=== PATIENT | male | born 1965 | race Caucasian/White ===

== ENCOUNTER 2016-02-17 18:45 | Emergency (ER) | payer MEDICAID ==
[2016-02-17 19:28] VITALS: TEMP 97.9; BMI 27.3
[2016-02-17 19:35] LABS: ALL NEG? NO
[2016-02-17 19:39] LABS: AUTOMATED BASOPHIL 1.7 % (0-2); AUTOMATED EOSINOPHIL 4.3 % (0-5); AUTOMATED LYMPH 47.3 % (17-44); AUTOMATED MONOCYTE 10.2 % (3-10); AUTOMATED NEUTROPHIL 36.5 % (45-76); MPV 7.6 fL (7.4-10.4)
[2016-02-17 19:43] LABS: MDMA* NEG (NEGATIVE); METHAMPHETAMINES NEG (NEGATIVE); OXYCODONE NEG (NEGATIVE)
[2016-02-17 19:47] LABS: LEUKOCYTES/URINE NEG (NEGATIVE); NITRITE/URINE NEG (NEGATIVE); URINE OCCULT BLOOD NEG (NEG/TRACE)
[2016-02-17 19:52] LABS: BLOOD UREA NITROGEN 4 MG/DL (9-20); CALC CORRECTED 8.7 MG/DL (8.4-10.2); CALCIUM 8.4 MG/DL (8.4-10.2); CALCULATED OSMOLALITY 280 MOs/Kg (270-290); CHLORIDE 103 mEq/L (98-107); GLUCOSE 110 MG/DL (70-99); SODIUM LEVEL 147 mEq/L (137-146); TOTAL PROTEIN 7.6 G/DL (6.3-8.2)
[2016-02-17 19:59] LABS: ETOH-MGDL 285 mg/dL
--- NOTE | 2016-02-17 21:54 | EDPRACDOC ---
- General Information Chief Complaint: Alcohol Withdrawal Stated Complaint: DETOX - SI THOUGHTS Time Seen by Provider: 02/17/16 21:46 Information Source: Patient Mode Of Arrival: Law Enforcement Home Medications: Home Medications Albuterol Sulfate [Proventil Hfa] 2 puff INH Q6 PRN 07/10/14 Amlodipine [Norvasc] 2.5 mg PO DAILY 07/10/14 Atorvastatin [Lipitor 40 mg Tablet] 40 mg PO HS 07/10/14 Esomeprazole Magnesium 40 mg PO DAILY 07/10/14 Roflumilast [Daliresp] 500 mcg PO DAILY 07/10/14 Tiotropium Toone [Spiriva] 1 puff INH DAILY 07/10/14 Lorazepam [Ativan] 1 mg PO TID #30 tab 11/26/15 Ondansetron HCl [Zofran] 4 mg PO Q6H PRN #20 tab 11/26/15 Levofloxacin [Levaquin] 750 mg PO .[id number] 12/31/15 Mirtazapine [Remeron] 15 mg PO HS 12/31/15 Oxycodone HCl [Oxycodone Immediate Release] 30 mg PO BID PRN 12/31/15 Xanax Non Prescribed 0 g PO .SEE COMMENTS 12/31/15 Allergies/Adverse Reactions: Allergies Allergy/AdvReac Type Severity Reaction Status Date / Time DORA Inhibitors Allergy Itching Verified 01/05/16 00:55 pregabalin [From Lyrica] Allergy Drowsiness Verified 01/05/16 00:55 - History of Present Illness 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 DENIES THOUGHTS OF SI OR HI Reason for Seeking Treatment: Self-referral Drinking Timeframe: Reports: Months Altered Mental Status For: Reports: None Injury/Pain Location: Denies: Head, NON, Neck, Back, Face, Mouth, Eye, Ear, Nose , Chest, Abdominal, Pelvis, EXT, O Lacerations: Reports: None Alcohol Ingested: Reports: ETOH Alcohol Type: Reports: Beer - Alcohol Withdrawal Screening Other Psychiatric Conditions: Positive: Depression ED Past Medical History - History Reviewed Yes Nurses notes reviewed and agree except as marked - Patient Medical History Cardiac History: Reports: Hypertension Respiratory History: Reports: COPD, Emphysema GI/ History: Reports: Kidney Stones, Ulcer Psychological History: Reports: Depression, Anxiety, Substance Use Disorder Surgical History: Reports: Hernia Surgery (RT INGUINAL HERNIA REPAIR 1959) - Family Medical History Reports: Hypertension (FATHER), Cancer (MOTHER LUNG CA), Stroke (MATERNAL GF), Cardiac Disorders (FATHER). Denies: Diabetes - Social Medical History Smoking Status: Heavy tobacco smoker (5 or more cigarettes/day or daily pipe/ cigar) Social History: Reports: Substance Use Disorder EDM Review of Systems - Review of Systems ROS Negative Except as Marked: Yes All systems reviewed and were negative except as marked - Physical Exam Constitutional: Alert Oriented to: Time, Person, Place Last recorded Vital Signs: Last Vital Signs Temp 97.9 F 02/17/16 19:22 Pulse 77 02/17/16 19:22 Resp 20 02/17/16 19:22 BP 150/83 02/17/16 19:22 Pulse Ox 91 02/17/16 19:22 Oxygen Pulse Oxygen Saturation 91 O2 Device Room Air Oxygen Flow Rate Fraction of Inspired Oxygen ( FIO2) - HEENT Head: Normal ( normocephalic) Eye Exam: Normal (PERRL, EOMI, Sclera white) Oropharynx: Normal (Pharynx:Moist without exudate,Gums-no swelling) Tympanic Membrane: Normal Nose: No Symptoms Reported (septum midline) Neck: Normal (FROM, trachea at midline) - Respiratory/Cardiovascular Respiratory: Normal - CTA (BBS clear to auscultation without adventitious sounds ) Cardiovascular: Normal (RRR without murmur, gallop or rub) - GI Auscultation: Normal (NABS) Palpation: Normal (Soft,No rebound or guarding, non distended) Tenderness: Non tender Zhang's Sign: Negative Rectal Exam: Deferred - Musculoskeletal Back: Normal (Non-Tender) Extremities: Normal (Normal tone, Pulses 2+ No cyanosis or edema, FROM) - Integumentary Skin: Normal, Warm, Dry Lymphatics: Normal (no adenopathy) - Neurologic Memory Impaired: Normal Motor Function: Normal (Normal tone, Pulses 2+ No cyanosis or edema, FROM) Cranial Nerve: Normal (CN II-X11 intact sensation, strength 5/5) Cerebellar: Normal Mood Description: Normal Perception: Normal CIWA - Clinical [place] Withdrawal Assessment Initial Evaluation Evaluation Time: 21:56 Nausea & Vomitting: No Nausea & No Vomiting Tremor: No Tremor Paroxysmal Sweats: No sweat visible Anxiety: No anxiety, at ease Agitation: Normal activity Tactile Disturbances: None Auditory Disturbances: None Visual Disturbances: None Headache, Fullness in Head: Not Present Orientation & clouding of Sensorium: Oriented and can do serial additions Total CIWA Score: 0 - Differential Diagnosis Alcohol Intoxication - Re-evaluation Re-evaluation 1 Re-evaluation Time: 21:57 SPOKE WITH THERAPEUTIC ALTERNATIVES AND THEY ARE GOING TO ARRANGE FOR MOBILE CRISIS - Results Result Diagrams: 02/17/16 19:23 02/17/16 19:23 WBC 4.5 xk/uL (3.8-10.8) 02/17/16 19:23 RBC 5.00 xM/uL (4.70-6.10) 02/17/16 19:23 Hgb 15.7 g/dL (14.0-18.0) 02/17/16 19:23 Hct 47.0 % (42-52) 02/17/16 19:23 MCV 94 fL (80-94) 02/17/16 19:23 MCH 31.3 pg (27-32) 02/17/16 19:23 MCHC 33.3 g/dl (33-36) 02/17/16 19:23 RDW 14.4 % (11.5-14.5) 02/17/16 19:23 Plt Count 238 xk/uL (130-400) 02/17/16 19:23 MPV 7.6 fL (7.4-10.4) 02/17/16 19:23 Neut % (Auto) 36.5 % (45-76) L 02/17/16 19:23 Lymph % (Auto) 47.3 % (17-44) H 02/17/16 19:23 Gordon % (Auto) 10.2 % (3-10) H 02/17/16 19:23 Eos % (Auto) 4.3 % (0-5) 02/17/16 19:23 Baso % (Auto) 1.7 % (0-2) 02/17/16 19:23 Absolute Neuts (auto) 1.62 xk/uL (1.7-8.2) L 02/17/16 19:23 Absolute Lymphs (auto) 2.12 xk/uL (0.65-4.75) 02/17/16 19:23 Sodium 147 mEq/L (137-146) H 02/17/16 19:23 Potassium 3.4 mEq/L (3.5-5.1) L 02/17/16 19:23 Chloride 103 mEq/L (98-107) 02/17/16 19:23 Carbon Dioxide 31 mMOL/L (22-33) 02/17/16 19:23 Anion Gap 16 mEq/L (8-16) 02/17/16 19:23 BUN 4 MG/DL (9-20) L 02/17/16 19:23 Creatinine 0.90 MG/DL (0.66-1.25) 02/17/16 19:23 Estimated GFR (MDRD) > 60 mL/min (>=60) 02/17/16 19:23 Glucose 110 MG/DL (70-99) H 02/17/16 19:23 Calculated Osmolality 280 MOs/Kg (270-290) 02/17/16 19:23 Calcium 8.4 MG/DL (8.4-10.2) 02/17/16 19:23 Corrected Calcium 8.7 MG/DL (8.4-10.2) 02/17/16 19:23 Total Bilirubin 0.3 MG/DL (0.2-1.3) 02/17/16 19:23 AST 67 IU/L (17-59) H 02/17/16 19:23 ALT 61 IU/L (21-72) 02/17/16 19:23 Alkaline Phosphatase 140 IU/L (38-126) H 02/17/16 19:23 Total Protein 7.6 G/DL (6.3-8.2) 02/17/16 19:23 Albumin 3.7 G/DL (3.5-5.0) 02/17/16 19:23 Urine Color Yellow 02/17/16 19:23 Urine Clarity Clear 02/17/16 19:23 Urine pH 7.0 (5.0-8.0) 02/17/16 19:23 Ur Specific [place] </=1.005 (1.003-1.035) 02/17/16 19:23 Urine Protein Neg (NEG/TRACE) 02/17/16 19:23 Urine Glucose (UA) Neg (NEGATIVE) 02/17/16 19:23 Urine Ketones Neg (NEGATIVE) 02/17/16 19:23 Urine Occult Blood Neg (NEG/TRACE) 02/17/16 19:23 Urine Nitrite Neg (NEGATIVE) 02/17/16 19:23 Urine Bilirubin Neg (NEGATIVE) 02/17/16 19:23 Urine Urobilinogen <2.0 MG/DL (0-1) 02/17/16 19:23 Ur Leukocyte Esterase Neg (NEGATIVE) 02/17/16 19:23 Urine Opiates Screen Neg (NEGATIVE) 02/17/16 19:23 Ur Oxycodone Screen Neg (NEGATIVE) 02/17/16 19:23 Urine Methadone Screen Neg (NEGATIVE) 02/17/16 19:23 Ur Barbiturates Screen Neg (NEGATIVE) 02/17/16 19:23 Ur Tricyclics Screen Neg (NEGATIVE) 02/17/16 19:23 Ur Phencyclidine Scrn Neg (NEGATIVE) 02/17/16 19:23 Ur Amphetamines Screen Neg (NEGATIVE) 02/17/16 19:23 U Methamphetamines Scrn Neg (NEGATIVE) 02/17/16 19:23 Urine MDMA Screen Neg (NEGATIVE) 02/17/16 19:23 U Benzodiazepines Scrn *positive* (NEGATIVE) H 02/17/16 19:23 Urine Cocaine Screen *positive* (NEGATIVE) H 02/17/16 19:23 Ur THC Screen Neg (NEGATIVE) 02/17/16 19:23 Plasma/Serum Ethyl Alc 0.29 % (<0.01) H 02/17/16 19:23 Lab Results 02/17/16 02/17/16 02/17/16 19:23 19:23 19:23 WBC 4.5 RBC 5.00 Hgb 15.7 Hct 47.0 MCV 94 MCH 31.3 MCHC 33.3 RDW 14.4 Plt Count 238 MPV 7.6 Neut % (Auto) 36.5 L Lymph % (Auto) 47.3 H Gordon % (Auto) 10.2 H Eos % (Auto) 4.3 Baso % (Auto) 1.7 Absolute Neuts (auto) 1.62 L Absolute Lymphs (auto) 2.12 Sodium Potassium Chloride Carbon Dioxide Anion Gap BUN Creatinine Estimated GFR (MDRD) Glucose Calculated Osmolality Calcium Corrected Calcium Total Bilirubin AST ALT Alkaline Phosphatase Total Protein Albumin Urine Color Yellow Urine Clarity Clear Urine pH 7.0 Ur Specific [place] </=1.005 Urine Protein Neg Urine Glucose (UA) Neg Urine Ketones Neg Urine Occult Blood Neg Urine Nitrite Neg Urine Bilirubin Neg Urine Urobilinogen <2.0 Ur Leukocyte Esterase Neg Urine Opiates Screen Neg Ur Oxycodone Screen Neg Urine Methadone Screen Neg Ur Barbiturates Screen Neg Ur Tricyclics Screen Neg Ur Phencyclidine Scrn Neg Ur Amphetamines Screen Neg U Methamphetamines Scrn Neg Urine MDMA Screen Neg U Benzodiazepines Scrn *positive* H Urine Cocaine Screen *positive* H Ur THC Screen Neg Plasma/Serum Ethyl Alc 02/17/16 19:23 WBC RBC Hgb Hct MCV MCH MCHC RDW Plt Count MPV Neut % (Auto) Lymph % (Auto) Gordon % (Auto) Eos % (Auto) Baso % (Auto) Absolute Neuts (auto) Absolute Lymphs (auto) Sodium 147 H Potassium 3.4 L Chloride 103 Carbon Dioxide 31 Anion Gap 16 BUN 4 L Creatinine 0.90 Estimated GFR (MDRD) > 60 Glucose 110 H Calculated Osmolality 280 Calcium 8.4 Corrected Calcium 8.7 Total Bilirubin 0.3 AST 67 H ALT 61 Alkaline Phosphatase 140 H Total Protein 7.6 Albumin 3.7 Urine Color Urine Clarity Urine pH Ur Specific [place] Urine Protein Urine Glucose (UA) Urine Ketones Urine Occult Blood Urine Nitrite Urine Bilirubin Urine Urobilinogen Ur Leukocyte Esterase Urine Opiates Screen Ur Oxycodone Screen Urine Methadone Screen Ur Barbiturates Screen Ur Tricyclics Screen Ur Phencyclidine Scrn Ur Amphetamines Screen U Methamphetamines Scrn Urine MDMA Screen U Benzodiazepines Scrn Urine Cocaine Screen Ur THC Screen Plasma/Serum Ethyl Alc 0.29 H Decision Time to Discharge: 22:01 - Departure Disposition: Home Condition: Stable Final Diagnosis: Alcohol intoxication Instructions: Abuse of Alcohol (ED), Alcohol Withdrawal (ED) Education/Counseling Given To: Patient Education/Counseling Given Regarding: Diagnosis, Treatment, Prognosis, Follow Up Referrals: Betito Goldstein II, MD [Staff Physician] - One Week
[2016-02-17 22:10] VITALS: BP 153/88; PULSE 79
== END 2016-02-17 22:10 | disposition home or self-care (01) ==
LOC: ED 18:45
DX: F10.129 Alcohol abuse with intoxication, unspecified (principal); I10 Essential (primary) hypertension; J44.9 Chronic obstructive pulmonary disease, unspecified; F32.9 Major depressive disorder, single episode, unspecified; F41.9 Anxiety disorder, unspecified; F17.200 Nicotine dependence, unspecified, uncomplicated; Z79.899 Other long term (current) drug therapy
CPT/HCPCS: 36415; 80053; 80307; 80320; 81001; 85025; 86592; 99283